=== PATIENT | male | born 1975 | race Caucasian/White ===

== ENCOUNTER 2022-06-10 12:56 | Emergency (ER) | payer MEDICAID, MEDICARE ==
[~2022-06-10] VITALS: Ht 203 cm; Wt 93.7 kg
[2022-06-10 13:45] LABS: BILIRUBIN,URINE NEGATIVE (NEGATIVE); CLARITY,URINE CLEAR; COLOR,URINE YELLOW; GLUCOSE, URINE (UA) NEGATIVE (NEGATIVE); KETONES,URINE NEGATIVE (NEGATIVE); LEUKOCYTE ESTERASE ,URINE NEGATIVE (NEGATIVE); NITRITE,URINE NEGATIVE (NEGATIVE); PROTEIN,URINE NEGATIVE (NEGATIVE)
--- NOTE | 2022-06-10 13:49 | ED Psychosocial ---
General Chief Complaint: Suicidal Ideation Risk Stated Complaint: PSYCH SI History of Present Illness Date Seen by Provider: Jun 10, 2022 Time Seen by Provider: 13:22 Initial Comments 46-year-old male reports being homeless and having feelings of hopelessness that have led to suicidal ideations. He has attempted suicide multiple times in the past with the last being in March of this year when he overdosed on Coumadin. 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 He sees a coil wrapper once yearly at [facility]. He has been inpatient at the [facility] in [place] for 96-hour hold on multiple occasions. He does not see a mental health provider on a regular basis. He reports feeling that he has hit rock bottom, he would use his belt to hang himself. He reports using Meth 3-4 days ago and if he had access to alcohol, he would drink until he passes out. Denies recent alcohol use. Has not attempted self harm since March 2022. He is r equesting food and fluids, as he hasn't eaten in several days and has been walking many miles daily. 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 No medical records are available. Timing/Duration: getting worse Severity: moderate Associated Symptoms: suicidal ideation (JI ALEX) Allergies and Home Medications Allergies Coded Allergies: No Known Drug Allergies (Unverified , 06/10/22) Patient Home Medication List Home Medication List Reviewed: Yes (JI ALEX) Review of Systems Constitutional: no symptoms reported, see HPI EENTM: see HPI, no symptoms reported Respiratory: no symptoms reported, see HPI Cardiovascular: no symptoms reported, see HPI Gastrointestinal: no symptoms reported, see HPI Genitourinary: no symptoms reported, see HPI Musculoskeletal: no symptoms reported, see HPI Skin: no symptoms reported, see HPI Psychiatric/Neurological: See HPI, Depressed, Emotional Problems; Denies Seizure (JI ALEX) All Other Systems Reviewed Negative Unless Noted: Yes (JI ALEX) Past Pwcklzq-Mtijrq-Elmqwr Hx Patient Social History Tobacco Use?: No Substance use?: Yes Substance type: Methamphetamine Substance frequency: Couple times a week Alcohol Use?: No (JI LAEX) Past Medical History Cardiac: Yes Aneurysm Cancer: Yes Bone Did You Recieve Any Treatments: Yes What Type of Treatment Did You: Radiation (JI ALEX) Family Medical History Reviewed and Corrections made (JI ALEX) Physical Exam Vital Signs - First Documented 06/10/22 12:56 Temp 37.1 Pulse 99 Resp 20 B/P (MAP) 130/85 (100) Pulse Ox 98 O2 Delivery Room Air (BOBBI PELLETIER) Capillary Refill : (JI ALEX) Height, Weight, BMI Height: '" Weight: lbs. oz. kg; BMI Method: General Appearance: WD/WN, mild distress HEENT: PERRL/EOMI, normal ENT inspection, TMs normal, pharynx normal Neck: non-tender, full range of motion, supple, normal inspection Respiratory: chest non-tender, lungs clear, normal breath sounds, no r espiratory distress Cardiovascular: normal peripheral pulses, regular rate, rhythm Gastrointestinal: normal bowel sounds, non tender, soft, no organomegaly Extremities: normal range of motion, non-tender, normal inspection, normal capillary refill Neurologic/Psychiatric: automation and controls manager II-XII nml as tested (grossly intact), no motor/sensory deficits, alert, normal mood/affect, oriented x 3 Appearance/Memory: appropriate appearance, appropriate insight Behavior/Eye Contact: cooperative, good eye contact Thoughts/Hallucinations: normal thought pattern, no apparent hallucination Skin: normal color, warm/dry (JI ALEX) Suicide Risk Suicide Risk Suicide Risk Level / RN Screen: High Low Suicide Risk Level []Suicidal Ideation WITHOUT method, intent, plan or behavior more than a month ago []]Modifiable risk factors and strong protective factors []No reported history of suicidal ideation or behavior []Patient reports/exhibits symptoms consistent with psychosis []Patient reports a plan that would be unrealistic/impossible to complete and intent []Suicide attempt prior to arrival (Indicates at LEAST Low Suicide Risk, consider other risk factors) Moderate Suicide Risk Level: []Suicidal ideation with method, WITHOUT plan, intent or behavior in the past mo nth []Multiple risk factors and few protective factors []Patient reports intent to follow through on plan to end life if allowed to leave hospital, and has attempted to elope from the hospital High Suicide Risk Level: [] Suicidal ideation with intent or intent with a plan in the past month [] Patient has harmed self or attempted suicide while in the hospital [] Patient has hx of or current Command Auditory hallucinations to harm self or others that they follow without hesitation [] Patient refuses to disclose plan, and indicates intent to complete [] Patient reports plan that is possible to accomplish and/or has means to complete Risk factors supporting recommendation: [] Non-compliance with treatment (acute or chronic) [] Patient has access to or owns firearms and/or stockpiled medications [] Hx Impulsive behavior [] Pending incarceration or homelessness [] Sexual abuse [] Family history and/or exposure to suicide [] Adverse childhood experiences [] Exposure to violence or negative socio-political cultural, and economic forces [] Current or hx of substance use/abuse [] Chronic physical pain or other acute medical problem (AIDS, COPD, Cancer, etc) [] Perceived burden on family or others [] Patient has attempted to elope [] Unable to answer and/or unable to identify [] Refuses to agree to a safety plan Protective Factors supporting recommendation: [] Identifies reasons for living [] Future plans/goals [] Engaged in work or School [] Good family support network [] Good social support network [] Responsibility to family [] Belief that suicide is immoral, against their yazdanism beliefs [] High spirituality and involvement in alevism community [] Fear of or dying due to pain and suffering [] Established outpt psychiatric services [] Unable to answer and/or unable to identify Risk Assessment Tool Score: High (JI ALEX) Progress/Results/Core Measures Results/Orders Lab Results Laboratory Tests Test 06/10/22 13:14 06/10/22 13:44 06/10/22 13:54 Range/Units Urine Color YELLOW Urine Clarity CLEAR Urine pH 6.0 5-9 Urine Specific [place] 1.010 L 1.016-1.022 Urine Protein NEGATIVE NEGATIVE Urine Glucose (UA) NEGATIVE NEGATIVE Urine Ketones NEGATIVE NEGATIVE Urine Nitrite NEGATIVE NEGATIVE Urine Bilirubin NEGATIVE NEGATIVE Urine Urobilinogen 0.2 < = 1.0 MG/DL Urine Leukocyte Esterase NEGATIVE NEGATIVE Urine RBC (Auto) NEGATIVE NEGATIVE Urine RBC NONE /HPF Urine WBC NONE /HPF Urine Squamous Epithelial Cells 0-2 /HPF Urine Crystals NONE /LPF Urine Bacteria NEGATIVE /HPF Urine Casts NONE /LPF Urine Mucus NEGATIVE /LPF Urine Culture Indicated NO Urine Opiates Screen NEGATIVE NEGATIVE Urine Oxycodone Screen NEGATIVE NEGATIVE Urine Methadone Screen NEGATIVE NEGATIVE Urine Propoxyphene Screen NEGATIVE NEGATIVE Urine Barbiturates Screen NEGATIVE NEGATIVE Ur Tricyclic Antidepressants Screen NEGATIVE NEGATIVE Urine Phencyclidine Screen NEGATIVE NEGATIVE Urine Amphetamines Screen POSITIVE H NEGATIVE Urine Methamphetamines Screen POSITIVE H NEGATIVE Urine Benzodiazepines Screen NEGATIVE NEGATIVE Urine Cocaine Screen NEGATIVE NEGATIVE Urine Cannabinoids Screen NEGATIVE NEGATIVE Influenza Type A (RT-PCR) Not Detected Not Detecte Influenza Type B (RT-PCR) Not Detected Not Detecte SARS-CoV-2 RNA (RT-PCR) Not Detected Not Detecte White Blood Count 7.1 4.3-11.0 10^3/uL Red Blood Count 4.39 4.30-5.52 10^6/uL Hemoglobin 13.7 13.3-17.7 g/dL Hematocrit 40 40-54 % Mean Corpuscular Volume 91 80-99 fL Mean Corpuscular Hemoglobin 31 25-34 pg Mean Corpuscular Hemoglobin Concent 34 32-36 g/dL Red Cell Distribution Width 12.7 10.0-14.5 % Platelet Count 270 130-400 10^3/uL Mean Platelet Volume 8.9 L 9.0-12.2 fL Immature Granulocyte % (Auto) 0 % Neutrophils (%) (Auto) 71 42-75 % Lymphocytes (%) (Auto) 18 12-44 % Monocytes (%) (Auto) 7 0-12 % Eosinophils (%) (Auto) 3 0-10 % Basophils (%) (Auto) 1 0-10 % Neutrophils # (Auto) 5.0 1.8-7.8 10^3/uL Lymphocytes # (Auto) 1.3 1.0-4.0 10^3/uL Monocytes # (Auto) 0.5 0.0-1.0 10^3/uL Eosinophils # (Auto) 0.2 0.0-0.3 10^3/uL Basophils # (Auto) 0.1 0.0-0.1 10^3/uL Immature Granulocyte # (Auto) 0.0 0.0-0.1 10^3/uL Prothrombin Time 12.8 12.2-14.7 SEC INR Comment 0.9 0.8-1.4 Activated Partial Thromboplast Time 28 24-35 SEC Sodium Level 139 135-145 MMOL/L Potassium Level 3.6 3.6-5.0 MMOL/L Chloride Level 105 98-107 MMOL/L Carbon Dioxide Level 25 21-32 MMOL/L Anion Gap 9 5-14 MMOL/L Blood Urea Nitrogen 9 7-18 MG/DL Creatinine 1.01 0.60-1.30 MG/DL Estimat Glomerular Filtration Rate 93 BUN/Creatinine Ratio 9 Glucose Level 108 H 70-105 MG/DL Calcium Level 9.0 8.5-10.1 MG/DL Corrected Calcium 9.3 8.5-10.1 MG/DL Total Bilirubin 0.3 0.1-1.0 MG/DL Aspartate Amino Transf (AST/SGOT) 14 5-34 U/L Alanine Aminotransferase (ALT/SGPT) 38 0-55 U/L Alkaline Phosphatase 76 40-136 U/L Total Protein 6.3 L 6.4-8.2 GM/DL Albumin 3.6 3.2-4.5 GM/DL Salicylates Level < 5.0 L 5.0-20.0 MG/DL Acetaminophen Level < 10 L 10-30 UG/ML Serum Alcohol < 10 <10 MG/DL (BOBBI PELLETIER) Vital Signs/I&O (BOBBI PELLETIER) Progress Progress Note : Time: 13:22 Progress Note patient seen and evaluated, Q15 min BH checks and direct line of sight with door opened at all times until 1:1 sitter available. Labs, mental health eval. [facility] called. Mental health screen completed, requires 1:1. 1345 MOISTURE MACHINE TENDER present for 1:1 care. Patient agreeable with care and will have mental health screening for placement. 1500 no complaints from patient. Continues to be compliant and agreeable. 1:1 care continues with MOISTURE MACHINE TENDER at bedside. 1600 Mental health screening completed, they will work on finding placement. 1645 continues to remain calm and cooperative in room. Requesting nicotine patch and something for sedation. Will give Ativan 1 mg PO 1730 resting in bed, easily arousable. Continues 1:1 care. Mental Health reports they are are working on referral for placement. 1845 no complaints at this time, has eaten and is resting with no requests. mental health continues to attempt finding placement. 1999 patient continues to report thoughts to harm himself, if discharged from hospital. No other requests at this time. 2100 continues 1:1 monitoring, resting in bed. 2200 patient has no requests. 2300 patient resting with eyes closed, no distress. Report given to Dr. Pelletier, to assume care. No follow up from [facility] with bed placement. (JI ALEX) Progress Note #1: Time: 23:34 Progress Note Assumed care of the patient at shift change. I agree with the plan to place the patient. [facility] is looking for inpatient psychiatric placement. Patient is resting comfortably and has been provided with food and drinks. Progress Note #2: Time: 06:07 Progress Note Patient has slept throughout the night. No complaints. Sitter was available all night. [facility] continues to work on placement and may have more luck during business hours this morning. Care of the patient has been transitioned to Dr. Smiley at shift change. (BOBBI PELLETIER) Progress Note #1: Time: 12:01 Progress Note I called [facility], they have a male psych bed available. They now require an RPR, TSH, free T4 B12 and folate levels prior to screening. These levels will be drawn. Patient's nurse VINAY Betancur is going to write out an affidavit as the patient is still saying that he is actively suicidal and told this to her just a few moments ago. Labs are pending at this time. Progress Note #2: Time: 14:19 Progress Note I spoke with [facility]'s direct call at 11:59 AM. They advised me that they do indeed have a male psych bed available. They did request an RPR, TSH, free T4 B12 and folate levels. These were drawn and sent. I was notified by the lab that our B12 and folate levels as well as the RPR are "send out" tests. I called back at 1402 and spoke with direct call and they stated they would not be able to consider the patient "medically cleared" until those levels were back. I spoke with one of the ED physicians, Dr Tanner La, he advised me to call back and asked to speak to psych directly. When I did this at 140[address] I was advised that Dr. Guzman would be happy to review the chart and we will be faxing the chart to [phone]. (HERIBERTO SMILEY MD) Initial ECG Impression Date: Jun 10, 2022 Initial ECG Impression Time: 13:49 Initial ECG Rhythm: Normal Sinus Initial ECG Intervals: Normal Initial ECG Intervals HI 181, QRS D 100, QT 378, QTc 428. Mershon P 22, R -46, T 56. Initial ECG Impression: Normal Initial ECG Comparisson: No Previous ECG Available (JI ALEX) Transfer of Care Time: 23:00 Care transferred to: Dr. Pelletier (JI ALEX) Departure Impression Primary Impression: Suicidal intent Additional Impressions: Marfan syndrome Depressed Qualified Codes: F32.89 - Other specified depressive episodes Hopelessness Homeless Methamphetamine abuse Disposition: XFER SHT-TRM HOSP Condition: Stable Transfer Transfer Reason: Exceeds level of care Time Spoke to Accepting Phy: 16:41 Transfer Progress Notes Discussed with Dr Guzman Transfer Time: 19:30 Transfer Facility: [facility] Method of Transfer: Private Vehicle (HERIBERTO SMILEY MD) Departure-Patient Inst. Referrals: NO,LOCAL PHYSICIAN (PCP/Family) Primary Care Physician Patient Instructions: OUTPT MENTAL HEALTH SERVICES JI ALEX Jun 10, 2022 13:49 BOBBI PELLETIER Jun 10, 2022 23:35 HERIBERTO SMILEY MD Jun 11, 2022 12:02
[2022-06-10 13:52] LABS: BACTERIA,URINE NEGATIVE /HPF; SQUAMOUS EPITHELIAL CELL,UR 0-2 /HPF
[2022-06-10 14:01] LABS: AMPHETAMINE SCREEN, URINE POSITIVE (NEGATIVE); BARBITURATE SCREEN URINE NEGATIVE (NEGATIVE); BENZODIAZEPINES SCREEN URINE NEGATIVE (NEGATIVE); CANNABINOID SCREEN, URINE NEGATIVE (NEGATIVE); COCAINE SCREEN URINE NEGATIVE (NEGATIVE); METHADONE STAT NEGATIVE (NEGATIVE); OPIATE SCREEN URINE NEGATIVE (NEGATIVE); OXYCODONE STAT NEGATIVE (NEGATIVE); PROPOXYPHENE STAT NEGATIVE (NEGATIVE); TRICYCLIC ANTIDEPRESSANTS SCRE NEGATIVE (NEGATIVE)
[2022-06-10 14:04] LABS: BASOPHILS # (AUTO) 0.1 10^3/uL (0.0-0.1); BASOPHILS % (AUTO) 1 % (0-10); EOSINOPHILS # (AUTO) 0.2 10^3/uL (0.0-0.3); EOSINOPHILS % (AUTO) 3 % (0-10); HEMATOCRIT 40 % (40-54); HEMOGLOBIN 13.7 g/dL (13.3-17.7); LYMPHOCYTES # (AUTO) 1.3 10^3/uL (1.0-4.0); LYMPHOCYTES % (AUTO) 18 % (12-44); MEAN CORPUSCULAR HEMOGLOBIN 31 pg (25-34); MEAN CORPUSCULAR HGB CONC 34 g/dL (32-36); MEAN CORPUSCULAR VOLUME 91 fL (80-99); MEAN PLATELET VOLUME 8.9 fL (9.0-12.2); MONOCYTES # (AUTO) 0.5 10^3/uL (0.0-1.0); MONOCYTES % (AUTO) 7 % (0-12); NEUTROPHILS % (AUTO) 71 % (42-75); PLATELET COUNT 270 10^3/uL (130-400); WHITE BLOOD COUNT 7.1 10^3/uL (4.3-11.0)
[2022-06-10 14:15] LABS: ALBUMIN 3.6 GM/DL (3.2-4.5); CHLORIDE 105 MMOL/L (98-107); POTASSIUM 3.6 MMOL/L (3.6-5.0); SODIUM 139 MMOL/L (135-145)
[2022-06-10 14:18] LABS: GLUCOSE 108 MG/DL (70-105); INR 0.9 (0.8-1.4); PROTHROMBIN TIME PATIENT 12.8 SEC (12.2-14.7); TOTAL PROTEIN 6.3 GM/DL (6.4-8.2)
[2022-06-10 14:19] LABS: BILIRUBIN,TOTAL 0.3 MG/DL (0.1-1.0); CARBON DIOXIDE 25 MMOL/L (21-32)
[2022-06-10 14:21] LABS: ALKALINE PHOSPHATASE 76 U/L (40-136); CREATININE SERUM 1.01 MG/DL (0.60-1.30); GFR ESTIMATED 93
[2022-06-10 14:23] LABS: BUN/CREATININE RATIO 9
[2022-06-10 14:24] LABS: SALICYLATE < 5.0 MG/DL (5.0-20.0)
[2022-06-10 14:25] LABS: ALANINE AMINOTRANSFERASE 38 U/L (0-55)
[2022-06-10 14:28] LABS: ACETAMINOPHEN < 10 UG/ML (10-30)
[2022-06-10] MEDS ORDERED: LORazepam 0.5 MG (ATIVAN) TABLET PO STA (16:32)
[2022-06-10] MEDS ORDERED: NICOTINE 21 MG (NICODERM) PATCH TD STA (16:32)
[2022-06-11 13:22] LABS: FREE T4 (FREE THYROXINE) 0.87 NG/DL (0.70-1.48)
[2022-06-11] MEDS ORDERED: LORazepam 1 MG (ATIVAN) TAB PO ONE (18:15)
[2022-06-11 20:27] VITALS: BP 115/66
== END 2022-06-11 20:27 | disposition short-term general hospital (02) ==
LOC: EDUNIT# 12:56 → ER 13:08
DX: Q87.40 Marfan syndrome, unspecified (principal); F32.A Depression, unspecified; R45.851 Suicidal ideations; F15.10 Other stimulant abuse, uncomplicated; Z59.00 Homelessness unspecified; Z20.822 Contact with and (suspected) exposure to COVID-19
CPT/HCPCS: 80053; 80306; 81000; 82607; 82746; 84439; 84443; 85025; 85610; 85730; 86780; 87636; 93005; 99284; G0480 ×3; 36415; 80320; 80329